=== PATIENT | male | born 1935 | race Hispanic/Latino ===

== ENCOUNTER 2017-08-19 10:24 | Emergency (ER) | payer MEDICARE ==
[2017-08-19 10:25] VITALS: BMI 24.2
[2017-08-19 10:43] VITALS: RESP 18; TEMP 98.2
--- NOTE | 2017-08-19 11:53 | ED PDOC ---
Arrival/HPI - General Chief Complaint: Trauma Time Seen by Provider: 08/19/17 11:03 Historian: Patient - History of Present Illness Narrative History of Present Illness (Text): 08/19/17 12:00 An 81 year old male presents to the emergency department complaining of back pain, left sided neck pain and right thigh pain s/p fall. Reports he fell five days ago, and fell after missing a step. Notes he hit the right sided of back on the door, left side of neck hit the wall, pain to left side of neck. . Denies any bruising. Reports having trouble ambulating, uses crutches. Patient denies any abdominal pain, left leg pain, headache, b/l knee pain, hip pain or any other complaints at this time. PMD: Dr. Cruz 08/19/17 14:29 Time/Duration: Other (5 days ago) Symptom Onset: Sudden Symptom Course: Unchanged Activities at Onset: Light Past Medical History - Provider Review Nursing Documentation Reviewed: Yes - Infectious Disease Hx of Infectious Diseases: None - Tetanus Immunization Tetanus Immunization: Unknown - Past Medical History Past Medical History: No Previous - Cardiac Hx Cardiac Disorders: Yes (CAD) Hx Hypertension: Yes - Pulmonary Hx Respiratory Disorders: Yes (SMOKED CIGARETTES QUIT 5-6 YRS AGO.) Hx Chronic Obstructive Pulmonary Disease (COPD): Yes Hx Pulmonary Embolism: Yes - Neurological Hx Neurological Disorder: No - HEENT Hx HEENT Disorder: No - Renal Hx Renal Disorder: No - Endocrine/Metabolic Hx Endocrine Disorders: No - Hematological/Oncological Hx Blood Disorders: Yes (THROMBOCYTOPENIA) - Integumentary Hx Dermatological Disorder: No - Musculoskeletal/Rheumatological Hx Musculoskeletal Disorders: No Hx Falls: No - Gastrointestinal Hx Gastrointestinal Disorders: Yes (colon polyp) - Genitourinary/Gynecological Hx Genitourinary Disorders: Yes Hx Hematuria: Yes Hx Prostate Problems: Yes (bph,TURP 08-09-16) - Psychiatric Hx Emotional Abuse: No Hx Physical Abuse: No Hx Substance Use: No - Past Surgical History Past Surgical History: No Previous - Surgical History Hx Cardiac Catheterization: Yes (2011) - Anesthesia Hx Anesthesia: No Hx Anesthesia Reactions: No Hx Malignant Hyperthermia: No - Suicidal Assessment Feels Threatened In Home Enviroment: No Family/Social History - Physician Review Nursing Documentation Reviewed: Yes Family/Social History: No Known Family HX Smoking Status: Former Smoker Hx Alcohol Use: No Hx Substance Use: No Hx Substance Use Treatment: No Allergies/Home Meds Allergies/Adverse Reactions: Allergies No Known Allergies Allergy (Verified 08/19/17 10:40) Home Medications: Home Meds Medication Instructions Recorded Confirmed Cholecalciferol (Vitamin D3) 2,000 unit PO DAILY 08/04/16 08/19/17 [Vitamin D3] Cyanocobalamin [Vitamin B12 1000 1,000 mcg PO DAILY 08/04/16 08/19/17 mcg Tab] Fluticasone/Vilanterol [Breo 1 each IH DAILY 08/19/17 08/19/17 Ellipta 100-25 Mcg INH] Glycopyrrolate [Seebri Neohaler] 15.6 mcg IH BID 08/19/17 08/19/17 Simvastatin [Zocor] 40 mg PO DAILY 08/19/17 08/19/17 Review of Systems - Physician Review All systems were reviewed & negative as marked: Yes - Review of Systems Gastrointestinal: absent: Abdominal Pain Musculoskeletal: Back Pain, Neck Pain (left sided), Other (right thigh pain; no hip pain; no b/l knee pain) Neurological: absent: Headache Physical Exam Vital Signs Reviewed: Yes Vital Signs Temp Pulse Resp BP Pulse Ox 08/19/17 13:05 74 18 132/71 95 08/19/17 10:42 98.2 F 77 18 134/76 94 L Temperature: Afebrile Blood Pressure: Normal Pulse: Regular Respiratory Rate: Normal Appearance: Positive for: Well-Appearing, Non-Toxic, Comfortable Pain Distress: None Mental Status: Positive for: Alert and Oriented X 3 - Systems Exam Head: Present: Atraumatic, Normocephalic Pupils: Present: PERRL Extroacular Muscles: Present: EOMI Conjunctiva: Present: Normal Mouth: Present: Moist Mucous Membranes Neck: Present: Other (left paracervical tenderness) Respiratory/Chest: Present: Clear to Auscultation, Good Air Exchange. No: Respiratory Distress, Accessory Muscle Use Cardiovascular: Present: Regular Rate and Rhythm, Normal S1, S2. No: Murmurs Abdomen: Present: Normal Bowel Sounds. No: Tenderness, Distention, Peritoneal Signs Back: Present: Other (right upper back tenderness) Upper Extremity: Present: Normal Inspection. No: Cyanosis, Edema Lower Extremity: Present: Other (right upper leg medial tenderness and mild swelling) Neurological: Present: GCS=15, CN II-XII Intact, Speech Normal Skin: Present: Warm, Dry, Normal Color. No: Rashes Psychiatric: Present: Alert, Oriented x 3, Normal Insight, Normal Concentration Medical Decision Making ED Course and Treatment: 08/19/17 11:46 Impression: An 81 year old male with back pain, left sided neck pain, and right thigh pain s /p fall x 4 days. r/o fracture Plan: -- CT cervical spine -- CT head -- Radiology right femur, right ribs and chest, right hip -- Flexeril, Tylenol -- Reassess and disposition Prior Visits: Notes and results from previous visits were reviewed. Patient was last seen in the emergency department on 09/16/16 for evaluation of right sided back pain. Progress Notes: 08/19/17 12:37 CT HEAD WITHOUT CONTRAST Creator : Jam Agustin MD IMPRESSION: No acute findings. 08/19/17 13:21 Ribx xray Creator : Jam Agustin MD IMPRESSION: Unremarkable radiographs of the chest and right ribs. No right rib fracture. Hip/[facility] Xray 08/19/17 13:22 Creator : Jam Agustin MD IMPRESSION: Normal radiographs of right hip. 08/19/17 13:25 Femur Xray Creator : Jam Agustin MD IMPRESSION: Unremarkable radiographs of the right femur. 08/19/17 13:35 CT Cervical Spine without Creator : Jam Agustin MD contrast IMPRESSION: No acute findings. 08/19/17 13:43 pt reassesed, Offered admission, as patient has difficulty ambulating, patient refused admission for PT EVAL. pt specifically asking to be d/c home. 08/19/17 14:29 - RAD Interpretation Radiology Orders: 08/19/17 11:16 CERVICAL SPINE W/O CONTRAST [CT] Stat HEAD W/O CONTRAST [CT] Stat Femur Right [FEMUR MIN 2 VIEWS RT] [RAD] Stat HIP MIN 2V W/ PELVIS RT [RAD] Stat RIBS RIGHT & PA CHEST [RAD] Stat - Medication Orders Current Medication Orders: Discontinued Medications Acetaminophen (Tylenol 325mg Tab) 975 mg PO STAT STA Stop: 08/19/17 11:18 Last Admin: 08/19/17 11:35 Dose: 975 mg MAR Pain/Vitals Document 08/19/17 11:35 GMD (Rec: 08/19/17 11:35 GMD [facility] [id number]) Pain Reassessment Is This A Pain ReAssessment? No Sleep Is patient sleeping during reassessment? No Presence of Pain Presence of Pain Yes Cyclobenzaprine HCl (Flexeril) 10 mg PO STAT STA Stop: 08/19/17 11:18 Last Admin: 08/19/17 11:35 Dose: 10 mg - Scribe Statement The provider has reviewed the documentation as recorded by the Lucretia Weaver Provider Scribe Attestation: All medical record entries made by the Maryibluis were at my direction and personally dictated by me. I have reviewed the chart and agree that the record accurately reflects my personal performance of the history, physical exam, medical decision making, and the department course for this patient. I have also personally directed, reviewed, and agree with the discharge instructions and disposition. Disposition/Present on Arrival - Present on Arrival Any Indicators Present on Arrival: No History of DVT/PE: Yes History of Uncontrolled Diabetes: No Urinary Catheter: No History of Decub. Ulcer: No History Surgical Site Infection Following: None - Disposition Have Diagnosis and Disposition been Completed?: Yes Diagnosis: Fall, Neck injury, Leg sprain, Back pain Disposition: HOME/ ROUTINE Disposition Time: 13:37 Condition: STABLE Discharge Instructions (ExitCare): Cervical Strain (DC), Fall Prevention for Older Adults (GEN), Leg Sprain (ED), Back Pain (GEN) Additional Instructions: please follow up with your doctor. return toe r with worsening symptoms or concerns. Prescriptions: Cyclobenzaprine [Cyclobenzaprine HCl] 10 mg PO DAILY PRN #10 tab PRN Reason: Muscle Spasm Referrals: Mesfin Cruz MD [Primary Care Provider] - Follow up with primary Rafal Carter III, MD [Medical Doctor] - Follow up with primary Forms: [facility] (Spanish)
--- NOTE | 2017-08-19 12:35 | CT ---
PROCEDURE: CT HEAD WITHOUT CONTRAST. HISTORY: fall COMPARISON: 09/15/2014 TECHNIQUE: Axial computed tomography images were obtained through the head/brain without intravenous contrast. Radiation dose: Total exam DLP = 898 mGy-cm. This CT exam was performed using one or more of the following dose reduction techniques: Automated exposure control, adjustment of the mA and/or kV according to patient size, and/or use of iterative reconstruction technique. FINDINGS: HEMORRHAGE: No intracranial hemorrhage. BRAIN: No mass effect or edema. No atrophy or chronic microvascular ischemic changes. VENTRICLES: Unremarkable. No hydrocephalus. CALVARIUM: Unremarkable. PARANASAL SINUSES: Unremarkable as visualized. No significant inflammatory changes. MASTOID AIR CELLS: Unremarkable as visualized. No inflammatory changes. OTHER FINDINGS: None. IMPRESSION: No acute findings
[2017-08-19 13:06] VITALS: BP 132/71; PULSE 74; O2SAT 95
--- NOTE | 2017-08-19 13:20 | RAD ---
PROCEDURE: Radiographs of the Chest and Right Ribs. HISTORY: fall COMPARISON: None available. TECHNIQUE: Frontal radiograph of the chest and multiple oblique radiographs of the right ribs were obtained. FINDINGS: RIGHT RIBS: No fracture or focal lesion visualized. LUNGS: Clear. PLEURA: No pneumothorax or pleural fluid. CARDIOVASCULAR: Normal sized heart. No pulmonary vascular congestion. OTHER FINDINGS: None. IMPRESSION: Unremarkable radiographs of the chest and right ribs. No right rib fracture.
--- NOTE | 2017-08-19 13:21 | RAD ---
PROCEDURE: Right Hip and pelvis Radiographs. HISTORY: fall COMPARISON: None. FINDINGS: BONES: Normal. No fracture. JOINTS: Normal. SOFT TISSUES: Normal. OTHER FINDINGS: None. IMPRESSION: Normal radiographs of right hip.
--- NOTE | 2017-08-19 13:22 | RAD ---
PROCEDURE: Right Femur Radiographs. HISTORY: fall COMPARISON: None. TECHNIQUE: AP and Lateral Radiographs of the right femur. FINDINGS: FEMUR: Normal. No fracture. SOFT TISSUES: Normal. OTHER FINDINGS: None. IMPRESSION: Unremarkable radiographs of the right femur.
--- NOTE | 2017-08-19 13:33 | CT ---
PROCEDURE: CT Cervical Spine without contrast HISTORY: Fall COMPARISON: None available. TECHNIQUE: Axial computed tomography images were obtained of the cervical spine without the use of intravenous contrast. Coronal and sagittal reformatted images were created and reviewed. Radiation dose: Total exam DLP = 489 mGy-cm. This CT exam was performed using one or more of the following dose reduction techniques: Automated exposure control, adjustment of the mA and/or kV according to patient size, and/or use of iterative reconstruction technique. FINDINGS: VERTEBRAE: No fracture. Normal alignment. No destructive bony lesion. DISCS/SPINAL CANAL/NEURAL FORAMINA: No significant central canal or neural foraminal stenosis. There is severe disc degeneration at multiple levels. There is thickening and calcification of the transverse ligament. PARASPINAL SOFT TISSUES: Unremarkable. OTHER FINDINGS: None. IMPRESSION: No acute findings
== END 2017-08-19 13:57 | disposition home or self-care (01) ==
LOC: ED 10:24
DX: S19.9XXA Unspecified injury of neck, initial encounter (principal); S73.101A Unspecified sprain of right hip, initial encounter; W10.9XXA Fall (on) (from) unspecified stairs and steps, initial encounter; M54.9 Dorsalgia, unspecified; I10 Essential (primary) hypertension; I25.10 Atherosclerotic heart disease of native coronary artery without angina pectoris